=== PATIENT | female | born 1990 ===

== ENCOUNTER 2020-09-05 12:45 | Inpatient (IN) | payer OTHER ==
[~2020-09-05] VITALS: Ht 162.6 cm; Wt 68.0 kg
== END 2020-10-02 12:58 | disposition home or self-care (01) | DRG 807 ==
LOC: OB/GYN 09-22 12:45 → LDR 09-30 11:03 → OB/GYN 09-30 21:29
PROVIDERS: ADMIT Obstetrics & Gynecology Maternal & Fetal Medicine; ATTEND Obstetrics & Gynecology Maternal & Fetal Medicine
PROC: 10E0XZZ Delivery of Products of Conception, External Approach (ICD-10-PCS; principal; 2020-09-30)
PROC: 0KQM0ZZ Repair Perineum Muscle, Open Approach (ICD-10-PCS; 2020-09-30)
PROC: 0W8NXZZ Division of Female Perineum, External Approach (ICD-10-PCS; 2020-09-30)
PROC: 4A1HXFZ Monitoring of Products of Conception, Cardiac Rhythm, External Approach (ICD-10-PCS; 2020-09-30)
DX: O70.1 Second degree perineal laceration during delivery (principal); O48.1 Prolonged pregnancy; Z37.0 Single live birth; Z3A.49 Greater than 42 weeks gestation of pregnancy

== ENCOUNTER 2020-09-20 07:48 | Outpatient (CLI) | payer OTHER | END 2020-09-20 08:37 | disposition home or self-care (01) | LOC: NST 07:48 | PROVIDERS: ATTEND Obstetrics & Gynecology | DX: Z34.83 Encounter for supervision of other normal pregnancy, third trimester (principal) ==

== ENCOUNTER 2020-09-23 07:40 | Outpatient (CLI) | payer OTHER | END 2020-09-23 08:34 | disposition home or self-care (01) | LOC: NST 07:40 → OBS/DEL 07:40 | PROVIDERS: ATTEND Obstetrics & Gynecology Maternal & Fetal Medicine | DX: Z34.83 Encounter for supervision of other normal pregnancy, third trimester (principal) ==

== ENCOUNTER 2020-09-27 12:36 | Outpatient (CLI) | payer OTHER | END 2020-09-27 13:46 | disposition home or self-care (01) | LOC: NST 12:36 | PROVIDERS: ATTEND Obstetrics & Gynecology Maternal & Fetal Medicine | DX: Z34.83 Encounter for supervision of other normal pregnancy, third trimester (principal) ==

== ENCOUNTER 2020-09-30 08:34 | Outpatient (CLI) | payer OTHER | END 2020-09-30 09:27 | disposition home or self-care (01) | LOC: NST 08:34 | PROVIDERS: ATTEND Obstetrics & Gynecology Maternal & Fetal Medicine | DX: Z34.83 Encounter for supervision of other normal pregnancy, third trimester (principal) ==

== ENCOUNTER 2024-05-21 11:38 | Outpatient (CLI) | payer OTHER | END 2024-05-21 11:39 | disposition home or self-care (01) | LOC: PRENATAL 11:38 | PROVIDERS: ATTEND Obstetrics & Gynecology Maternal & Fetal Medicine | DX: O35.3XX0 Maternal care for (suspected) damage to fetus from viral disease in mother, not applicable or unspecified (principal); O44.00 Complete placenta previa NOS or without hemorrhage, unspecified trimester; O09.529 Supervision of elderly multigravida, unspecified trimester; Z3A.20 20 weeks gestation of pregnancy ==

== ENCOUNTER 2024-07-15 10:53 | Outpatient (CLI) | payer OTHER | END 2024-07-15 10:54 | disposition home or self-care (01) | LOC: PRENATAL 10:53 | PROVIDERS: ATTEND Obstetrics & Gynecology Maternal & Fetal Medicine | DX: O26.849 Uterine size-date discrepancy, unspecified trimester (principal); O09.529 Supervision of elderly multigravida, unspecified trimester; Z3A.30 30 weeks gestation of pregnancy ==

== ENCOUNTER 2024-08-24 10:27 | Outpatient (CLI) | payer OTHER | END 2024-08-24 10:28 | disposition home or self-care (01) | LOC: PRENATAL 10:27 | PROVIDERS: ATTEND Obstetrics & Gynecology Maternal & Fetal Medicine | DX: O26.849 Uterine size-date discrepancy, unspecified trimester (principal); O36.8199 Decreased fetal movements, unspecified trimester, other fetus; O40.1XX0 Polyhydramnios, first trimester, not applicable or unspecified; O09.529 Supervision of elderly multigravida, unspecified trimester; Z3A.34 34 weeks gestation of pregnancy ==